=== PATIENT | female | born 1985 | race Caucasian/White ===

== ENCOUNTER 2025-06-30 13:06 | Emergency (ER) | payer MEDICAID ==
[~2025-06-30] VITALS: Ht 170.2 cm; Wt 70.0 kg
[2025-06-30 13:15] VITALS: BP 158/111; PULSE 89; RESP 18; TEMP 98.7; O2SAT 98
[2025-06-30] MEDS ORDERED: HYDR-3686 PO (13:30)
--- NOTE | 2025-06-30 13:30 | Physician Documentation ---
HPI ~ General Chief Complaint: Medication Request Stated Complaint: MED REQUEST Time Seen by MD: 13:16 Source: patient Mode of Arrival: POV Exam Limitations: no limitations History of Present Illness HPI Comments 39-year-old female wanted a medication refill of her antidepressant does have primary care but can not remember the name of the medication. No suicidal homicidal ideations. No other acute concerns Medication Reconciliation Allergies: Coded Allergies: No Known Allergies (Unverified , 06/30/25) Scheduled Hydroxyzine Hcl (Atarax), 1 TAB PO Q12H Sertraline Hcl* (Zoloft*), 1 TAB PO DAILY Past Medical History Past Medical History: Depression Past Surgical History: noncontributory Drug Use: none Lives with: Family Lives In: Home Review of Systems All Other Systems at this time: Reviewed and Negative Physical Exam Physical Exam Vital Signs: RN Vital Signs have been reviewed: Yes, Temperature: 98.7, Source: Oral, Heart Rate: 89, Respiratory Rate: 18, BP: 158/111, Pulse Oximetry: 98, Weight: 70.000 Oxygen Flow Rate: 0 Physical Exam General: Alert, no apparent distress. HEENT: moist mucous membranes. Neck: Full range of motion. Respiratory: No respiratory distress speaking in full sentences Chest: No accessory muscle use. Cardiovascular: Appears well perfused Neurologic: Oriented x4. Psychiatric: Normal mood and affect. Skin: Normal color, warm and dry. No edema, no ecchymosis. Progress Results/Orders Results/Orders Vital Signs 06/30/25 13:15 Temp 98.7 Pulse 89 Resp 18 B/P (MAP) 158/111 Pulse Ox 98 O2 Flow Rate 0 Medical Decision Making Additional information obtaine: N/A Findings Patient wants a medication refill of the medication she does not remember the name of. Patient finally remember the name of the medication which was sertraline. Medication was refilled Differential Dx:Considerations: Include: Medication refill Departure Time of Disposition: 13:29 Disposition: 01 HOME / SELF CARE / HOMELESS Impression: Primary Impression: General medical exam Condition: Stable Discharge Instructions: Medicine Refill at the Emergency Department Additional Instructions: I am unable to see which medication you need refilled. I would need the name of the medication. Hydroxyzine as for anxiety follow up with primary care for further treatment evaluation Referrals: NO PRIMARY CARE PROVIDER (PCP) Prescriptions Sertraline Hcl* (Zoloft*) 25 Mg Tablet 1 TAB PO DAILY for 30 Days, #30 TAB 0 Refills Prov: NUPUR GILMORE NP 06/30/25 Hydroxyzine Hcl (Atarax) 25 Mg Tablet 1 TAB PO Q12H for anxiety for 30 Days, #60 TAB 0 Refills Prov: NUPUR GILMORE NP 06/30/25 Education Educated: Patient Educated regarding: diagnosis, treatment, need for follow up Signature Scribe Signature: No scribe Attestation: The note accurately reflects work and decisions made by me.Nupur Gilmore - ISIDRO 06/30/25 13:30 NUPUR GILMORE NP Jun 30, 2025 13:30
[2025-06-30] MEDS ORDERED: SERT25TA PO (13:53)
== END 2025-06-30 13:54 | disposition home or self-care (01) ==
LOC: ER 13:07
DX: Z00.00 Encounter for general adult medical examination without abnormal findings (principal); F32.A Depression, unspecified; Z76.0 Encounter for issue of repeat prescription; Z79.899 Other long term (current) drug therapy
CPT/HCPCS: 99282